=== PATIENT | male | born 1975 | race Caucasian/White ===

== ENCOUNTER 2017-09-01 22:58 | Emergency (ER) | payer OTHER ==
[~2017-09-01 22:58] MED LIST: CEPHALEXIN 500 MG CAP PO SCH
--- NOTE | 2017-09-01 23:22 | EDPHY ---
General - History Smoking Status: Current some day smoker Time Seen by Provider: 09/01/17 23:13 Narrative: CHIEF COMPLAINT: Foot pain HISTORY OF PRESENT ILLNESS: Patient presents with complaints of bilateral foot pain. Pain is present for weeks, but worsened over the past 2 days. It is moderately to severely painful in both feet. He is homeless and has no clean socks. He says the socks he has are moldy. The pain is worse with palpation or ambulatory. Does not radiate. No fever. No numbness, tingling or weakness. Some improvement when he rest intake that she was up. He is currently living on the streets with no way to bathe himself and he does not have a place to stay at the shelters. No other associated complaints or modifying factors. Tetanus up-to-date less than 2 years ago. ESTABLISHED ORTHOPEDIST: None REVIEW OF SYSTEMS: Ten systems reviewed and are negative unless otherwise noted in the HPI PAST MEDICAL HISTORY: Uncomplicated PAST SURGICAL HISTORY: No recent surgeries SOCIAL HISTORY: Currently homeless. Occasional tobacco use. FAMILY HISTORY: Noncontributory EXAMINATION General Appearance: Alert, no distress. Well-developed. Cardiovascular: Symmetric DP pulses 2+. Good signs of perfusion to both feet. Neurological: A&O, sensory symmetric, great toe strength symmetric Skin: Warm and dry. No cellulitis. There is multiple area of callus formation that appears to be very wet with very poor hygiene of the feet. I do not appreciate any abscess, gangrene or necrosis. Extremities: Tenderness of multiple areas of both feet dependent upon the skin changes. There is no sloughing. No crepitus or subcutaneous emphysema. Range of motion is symmetric of the lower extremities. Psychiatric: Mood and affect normal MDM: 11:20 p.m. Chronic wounds of both feet due to poor hygiene and lack of clean closed. The patient will wash his own feet here. We will provide him with clean and dry socks. We discuss changing these frequently and following up at [facility] for further care. I provided this information for him. I do not feel that he has any evidence of septic joint, cellulitis, gangrene or necrosis. He is nondiabetic. He does not smoke. He is comfortable this plan and very appreciative of the socks. He will contact [facility] for further care. We discussed ED precautions for worsening pain, redness, warmth, fever. SUPERVISION: This patient was independently evaluated without direct involvement of or examination by the attending physician. ED Precautions: Worsening pain. Erythema, edema, cyanosis, pallor, paresthesia or anesthesia. (Dhaval Napier) PHYSICIAN DOCUMENTATION: The patient was evaluated and managed by the Physician Wind Tunnel Technician. My co- signature indicates that I have reviewed this chart and I agree with the findings and plan of care as documented. I am the secondary supervising physician. (Desirae Gregory) - Objective Vital Signs: Initial Vital Signs Temperature (C) 36.7 C 09/01/17 23:06 Heart Rate 52 L 09/01/17 23:06 Respiratory Rate 18 09/01/17 23:06 Blood Pressure 140/93 H 09/01/17 23:06 O2 Sat (%) 97 09/01/17 23:06 O2 Delivery Mode Room Air Allergies/Adverse Reactions: No Known Allergies Allergy (Unverified 09/01/17 23:05) Home Medications: Medication Instructions Recorded Clotrimazole 1% [Lotrimin 1%] 1 esthela TP BID #30 g 10/31/15 Cephalexin [Keflex (*)] 500 mg PO QID #28 cap 09/01/17 Medications Given: Discontinued Medications Ibuprofen (Motrin) 600 mg PO EDNOW ONE Stop: 09/01/17 23:25 Last Admin: 09/01/17 23:28 Dose: 600 mg Departure - Departure Disposition: Home, Routine, Self-Care Clinical Impression: Foot pain, bilateral Condition: Good Instructions: Cephalexin (By mouth), Chronic Wounds (ED) Additional Instructions: 1. Foot hygiene as discussed daily 2. You need to keep your feet as dry as possible. We have provided to clean pair Of socks for you 3. We have provided keflex prescription for you for prophylactic coverage 4. Recommend that you contact [facility] for outpatient care. You will need to contact them to be seen 5. ED precautions as discussed Referrals: Justin Mccloud MD [Medical Doctor] - As per Instructions [facility],. [Clinic] - As per Instructions Prescriptions: Cephalexin [Keflex (*)] 500 mg PO QID #28 cap
[2017-09-01] MEDS ORDERED: IBUPROFEN 600 MG TAB PO ONE (23:24)
[2017-09-01 23:44] VITALS: BP 128/89
== END 2017-09-02 00:05 | disposition home or self-care (01) ==
LOC: EDUNIT#
DX: M79.671 Pain in right foot (principal); M79.672 Pain in left foot; F17.200 Nicotine dependence, unspecified, uncomplicated

== ENCOUNTER 2017-09-04 00:05 | Emergency (ER) | payer OTHER ==
--- NOTE | 2017-09-04 00:08 | EDPHY ---
H & P Time Seen by Provider: 09/04/17 00:07 HPI/ROS: HPI CHIEF COMPLAINT: Bilateral feet pain, possible bug in left ear HISTORY OF PRESENT ILLNESS: 42-year-old male homeless, presents emergency room with bilateral feet pain, additionally reports that he thinks he may have a bug in his left ear is he has some discomfort and feels of movement. Denies any other complaints. He does state that he was recently here and diagnosed with trench foot placed on Keflex. He presents emergency room stating that his feet continue to hurt him. Patient has boots on without any socks. Denies chest pain shortness of breath, denies fever, denies vomiting. Past Medical History: Denies significant medical history Past Surgical History: Denies significant surgical history Social History: Homelessness. Family History: Noncontributory ROS REVIEW OF SYSTEMS: A comprehensive 10 point review of systems is otherwise negative aside from elements mentioned in the history of present illness. Exam Constitutional triage nursing summary reviewed, vital signs reviewed, awake/ alert. Eyes normal conjunctivae and sclera, EOMI, PERRLA. HENT bilateral TMs are clear, no evidence of foreign body visualized. normal inspection, atraumatic, moist mucus membranes, no epistaxis, neck supple/ no meningismus, no raccoon eyes. Respiratory clear to auscultation bilaterally, normal breath sounds, no respiratory distress, no wheezing. Cardiovascular rate normal, regular rhythm, no murmur, no edema, distal pulses normal. Gastrointestinal soft, non-tender, no rebound, no guarding, normal bowel sounds, no distension, no pulsatile mass. Genitourinary no CVA tenderness. Musculoskeletal no midline vertebral tenderness, full range of motion, no calf swelling, no tenderness of extremities, no meningismus, good pulses, neurovascularly intact. Skin bilateral feet: Poor hygiene. Dirt throughout the toes. Otherwise good distal pulse, good cap refill. No signs of significant cellulitis. Neurologic awake, alert and oriented x 3, AAOx3, moves all 4 extremities equally, motor intact, sensory intact, CN II-XII intact, normal cerebellar, normal vision, normal speech. Psychiatric normal mood/affect. Heme/Lymph/Immune no lymphadenopathy. Differential Diagnosis: Includes but is not limited to in a particular order trench foot, bilateral chronic foot pain, poor foot hygiene, foreign body in ear Medical Decision Making: Both TMs were visualized and clear, no evidence of infection, no evidence of foreign body in seen in either ear canal. His feet have been soak hearing clean with soapy water. Additionally that been dry in placed in clean socks. No evidence of superinfection. Recommend keeping his feet as clean as possible dry as possible continues Keflex. Return precautions discussed me understands Source: Patient, EMS - Medical/Surgical History Hx Asthma: No Hx Chronic Respiratory Disease: No Hx Diabetes: No Hx Cardiac Disease: No Hx Renal Disease: No Hx Cirrhosis: No Hx Alcoholism: No Hx HIV/AIDS: No Hx Splenectomy or Spleen Trauma: No Other PMH: homeless - Social History Smoking Status: Current some day smoker Allergies/Adverse Reactions: No Known Allergies Allergy (Unverified 09/01/17 23:05) Home Medications: Medication Instructions Recorded Clotrimazole 1% [Lotrimin 1%] 1 esthela TP BID #30 g 10/31/15 Cephalexin [Keflex (*)] 500 mg PO QID #28 cap 09/01/17 Departure - Departure Disposition: Home, Routine, Self-Care Clinical Impression: Foot pain, bilateral Condition: Good Instructions: Arthralgia (ED) Additional Instructions: 1. Keep your feet clean and dry as best as possible Referrals: NONE *PRIMARY CARE P,. [Primary Care Provider] - As per Instructions [facility],. [Clinic] - As per Instructions
[2017-09-04 00:20] VITALS: BP 135/85
== END 2017-09-04 00:39 | disposition home or self-care (01) ==
LOC: EDUNIT#
DX: M79.671 Pain in right foot (principal); M79.672 Pain in left foot; F17.200 Nicotine dependence, unspecified, uncomplicated